=== PATIENT | female | born 1960 | race African-American/Black ===

== ENCOUNTER 2023-05-03 10:10 | Outpatient (CLI) | payer MEDICAID, SELFPAY ==
--- NOTE | ~2023-05-03 | US_ITS ---
EXAMINATION: US abdomen complete DATE: 05/03/2023 11:34 INDICATION: Abdominal pain TECHNIQUE: Multiple grayscale and Doppler ultrasound images of the abdomen were obtained. COMPARISON: None available FINDINGS: The head and body of the pancreas are normal. The pancreatic tail is obscured by bowel gas. The liver is normal with normal echogenicity and echotexture. No surface nodularity. Normal hepatope melissa flow in the main portal vein. The gallbladder is normal with no abnormal wall thickening, pericho lecystic fluid or stones. The normal common bile duct measures 5 mm. There was no sonographic [place] sign. The visualized portions of the aorta and inferior vena cava are normal. The spleen is normal in appearance and measures 11.6 cm. The right kidney measures 9.6 x 4.4 x 5.7 cm . The left kidney measures 9.8 x 4.3 x 5.1 cm. The kidneys demonstrate normal parenchymal echogenicit y. There is no hydronephrosis. IMPRESSION: 1. No sonographic correlate for the patient's symptoms. Reviewed, dictated and finalized at location A.
--- NOTE | ~2023-05-03 | XR_ITS ---
EXAM: XR ankle RT min 3V DATE: 05/03/2023 11:07 HISTORY: PAIN IN RIGHT ANKLE JOINT . COMPARISON: None available. FINDINGS: Normal mineralization. Old healed fractures of the distal fibula and medial malleolus, hea led in slight deformity. Mild lateral subluxation of the talus relative to the tibial plafond. No acu te fracture or dislocation. No lytic or blastic lesion. Joint space narrowing and subchondral scleros is of the tibiotalar joint. Subchondral cyst formation in the lateral talus and the lateral aspect of the tibial plafond, with articular surface irregularity of the lateral aspect of the tibial plafond. No erosion or periosteal change. Soft tissues within normal limits. Pes planus. Plantar enthesopathy IMPRESSION: Old medial and lateral malleolus fractures, healed in slight deformity, with moderate tib iotalar degenerative change. Reviewed, dictated and finalized at location K. IMPRESSION: Old medial and lateral malleolus fractures, healed in slight deform ity, with moderate tibiotalar degenerative change.
== END 2023-05-03 10:11 | disposition home or self-care (01) ==
PROVIDERS: Visit Provider Internal Medicine Infectious Disease
DX: R10.9 Unspecified abdominal pain (principal); M19.071 Primary osteoarthritis, right ankle and foot
CPT/HCPCS: 73610; 76700

== ENCOUNTER 2024-10-07 08:11 | Outpatient (CLI) | payer OTHER, SELFPAY ==
--- NOTE | ~2024-10-07 | MM_ITS ---
EXAMINATION: MM screening ivy BI w katie HISTORY: Screening mammogram TECHNIQUE: Craniocaudal and mediolateral oblique 3-D tomosynthesis images were obtained and synthetic 2-D images were generated. CAD analysis was submitted and interpreted. COMPARISON: No prior mammogram is available for comparison at this institution. BREAST PARENCHYMAL COMPOSITION:Not Dense. The breasts are almost entirely fatty FINDINGS: No suspicious mass, calcification, or architectural distortion are identified in either juan ast to suggest malignancy. There has been no suspicious interval change. IMPRESSION: No mammographic evidence of malignancy. Recommend routine screening mammography in one year. BI-RADS Category 1: Negative Reviewed, dictated and finalized at location . [employer]
== END 2024-10-07 08:12 | disposition home or self-care (01) ==
LOC: ANHIMG 08:12
PROVIDERS: PCP Internal Medicine Infectious Disease; Visit Provider Internal Medicine Infectious Disease
DX: Z12.31 Encounter for screening mammogram for malignant neoplasm of breast (principal)
CPT/HCPCS: 77063; 77067